=== PATIENT | female | born 1990 | race Caucasian/White ===

== ENCOUNTER 2020-02-27 19:50 | Emergency (ER) | payer OTHER ==
--- NOTE | 2020-02-27 21:07 | ER ---
Nurse's Notes [facility] Name: Kelby Gonzalez Age: 29 yrs Sex: Female : 1990 Arrival Date: 02/27/2020 Time: 19:54 Bed 8 Private MD: Diagnosis: Pain in left leg;Pain in left lower leg Presentation: 02/26 19:59 Chief complaint: Patient states: Bilateral leg pain and numbness since Friday after [address] Coronavirus screen: Proceed with normal triage. Patient denies a cough. Patient denies shortness of breath or difficulty breathing. Patient denies measured and/or subjective temperature greater than 100.4F prior to today's visit. Patient denies travel on a cruise ship or to a country the [facility] currently lists as an affected area. Patient denies contact with known and/or suspected case of COVID-19. Ebola Screen: Patient denies travel to an Ebola-affected area in the 21 days before illness onset. Initial Sepsis Screen: Does the patient meet any 2 criteria? HR > 90 bpm. No. Patient's initial sepsis screen is negative. Does the patient have a suspected source of infection? No. Patient's initial sepsis screen is negative. Risk Assessment: Do you want to hurt yourself or someone else? Patient reports no desire to harm self or others. Onset of symptoms was February 25, 2020. 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 - Social history:: Smoking status: Patient denies any tobacco usage or history of. Patient uses alcohol, only on a social basis. Patient/guardian denies using street drugs, tobacco products. - Family history:: not pertinent. - Hospitalizations: : No recent hospitalization is reported. Screenin:54 Abuse screen: Denies threats or abuse. Nutritional screening: No deficits noted. jd3 Tuberculosis screening: No symptoms or risk factors identified. Fall Risk Ambulatory Aid- None/Bed Rest/Nurse Assist (0 pts). Gait- Normal/Bed Rest/Wheelchair (0 pts) Mental Status- Oriented to own ability (0 pts). Total Brown Fall Scale indicates No Risk (0-24 pts). Assessment: 20:51 General: Appears in no apparent distress. uncomfortable, Behavior is calm, cooperative, jd3 appropriate for age. Pain: Complains of pain in right leg Quality of pain is described as crampy, pressure. Neuro: Level of Consciousness is awake, alert, obeys commands, Oriented to person, place, time, situation. Cardiovascular: Denies chest pain, Capillary refill < 3 seconds Patient's skin is warm and dry. Respiratory: Airway is patent Respiratory effort is even, unlabored, Respiratory pattern is regular, symmetrical, Denies cough, shortness of breath. GI: No signs and/or symptoms were reported involving the gastrointestinal system. Patient currently denies diarrhea, nausea, vomiting. : No signs and/or symptoms were reported regarding the genitourinary system. EENT: No signs and/or symptoms were reported regarding the EENT system. Derm: Skin is intact, Skin is dry, Skin is normal, Skin temperature is warm. Musculoskeletal: Circulation, motion, and sensation intact. Range of motion: intact in all extremities. Vital Signs: 19:59 BP 117 / 75; Pulse 101; Resp 18; Pulse Ox 97% ; Weight 97.52 kg; Height 5 ft. 6 in. ll1 (167.64 cm); Pain 7/10; 19:59 Body Mass Index 34.70 (97.52 kg, 167.64 cm) ll1 ED Course: 19:54 Patient arrived in ED. cl3 20:02 Triage completed. ll1 20:03 Arm band placed on. ll1 20:35 Rell Molina, JORGE is Primary Nurse. jd3 20:47 Kranthi Benito DO is Attending Physician. ms3 20:54 Patient has correct armband on for positive identification. Bed in low position. Call jd3 light in reach. Side rails up X 1. Pulse ox on. NIBP on. 21:29 No provider procedures requiring assistance completed. Patient did not have IV access jd3 during this emergency room visit. Administered Medications: No medications were administered Outcome: 21:06 Discharge ordered by . ms3 21:29 Discharged to home via wheelchair, with family. jd3 21:29 Condition: stable 21:29 Discharge instructions given to patient, Instructed on discharge instructions, follow up and referral plans. Demonstrated understanding of instructions, follow-up care. 21:30 Patient left the ED. jluis Signatures: Rell Molina RN RN Matt Lozano cl3 Flaca Del Real RN RN ll1 Kranthi Benito DO DO ms3
--- NOTE | 2020-02-27 21:30 | EDPHYS ---
Physician Documentation [facility] Name: Kelby Gonzalez Age: 29 yrs Sex: Female : 1990 Arrival Date: 02/27/2020 Time: 19:54 Bed 8 Private MD: ED Physician Kranthi Benito HPI: 02/26 21:09 This 29 yrs old Female presents to ER via Ambulatory with complaints of ms3 Numbness In Legs. 21:15 The patient presents with pain, that is acute. The complaints affect the lateral aspect ms3 of left calf, left lateral ankle, lateral aspect of left foot, left calf, left Achilles, left heel, medial aspect of left calf, left medial ankle, medial aspect of left foot, left sosa, anterior aspect of left ankle and dorsum of left foot, lateral aspect of right calf, right ankle, lateral aspect of right foot, right calf, right Achilles, right heel, medial aspect of right calf, medial aspect of right foot, right sosa, anterior aspect of right ankle and dorsum of right foot. Context: The problem was sustained Rest, resulted from the patient can fully bear weight, the patient is able to ambulate, Problem is a result from a previous injury: No. Onset: The symptoms/episode began/occurred 3 day(s) ago. Modifying factors: The symptoms are alleviated by nothing. the symptoms are aggravated by Sitting or laying down. Associated signs and symptoms: Pertinent positives: Bilateral leg pain. Treatment prior to arrival includes: no previous treatment. Severity of symptoms: in the emergency department the symptoms have improved. 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 - Social history:: Smoking status: Patient denies any tobacco usage or history of. Patient uses alcohol, only on a social basis. Patient/guardian denies using street drugs, tobacco products. - Family history:: not pertinent. - Hospitalizations: : No recent hospitalization is reported. ROS: 21:15 Constitutional: Negative for fever, and chills. Eyes: Negative for injury, pain, ms3 redness, and discharge, ENT: Negative for injury, pain, and discharge, Neck: Negative for injury, pain, and swelling, Cardiovascular: Negative for chest pain, and palpitations. Respiratory: Negative for shortness of breath, cough, wheezing, and pleuritic chest pain, Abdomen/GI: Negative for abdominal pain, nausea, vomiting, diarrhea, and constipation, Back: Negative for injury and pain, : Negative for injury, bleeding, discharge, and swelling, Skin: Negative for injury, rash, and discoloration, Neuro: Negative for headache, weakness, numbness, tingling. Psych: Negative for depression, anxiety, suicide ideation, homicidal ideation, and hallucinations. 21:15 MS/extremity: Positive for pain. Exam: 21:15 Constitutional: This is a well developed, well nourished patient who is awake, alert, ms3 and in no acute distress. Head/Face: Normocephalic, atraumatic. Eyes: Pupils equal round and reactive to light, extra-ocular motions intact. Lids and lashes normal. Conjunctiva and sclera are non-icteric and not injected. Cornea within normal limits. Periorbital areas with no swelling, redness, or edema. Neck: Trachea midline, no cervical lymphadenopathy. Supple, full range of motion without nuchal rigidity, or vertebral point tenderness. No Meningismus. Chest/axilla: Normal chest wall appearance and motion. Nontender with no deformity. Cardiovascular: Regular rate and rhythm with a normal S1 and S2. No gallops, murmurs, or rubs. Normal PMI, no JVD. No pulse deficits. Respiratory: Lungs have equal breath sounds bilaterally, clear to auscultation and percussion. No rales, rhonchi or wheezes noted. No increased work of breathing, no retractions or nasal flaring. Abdomen/GI: Soft, non-tender, with normal bowel sounds. No distension or tympany. No guarding or rebound. No evidence of tenderness throughout. Back: No spinal tenderness. No costovertebral tenderness. Full range of motion. Skin: Warm, dry with normal turgor. Normal color with no rashes, no lesions, and no evidence of cellulitis. 21:15 Musculoskeletal/extremity: Extremities: all appear grossly normal, with no appreciated pain with palpation, ROM: no acute changes, intact in all extremities, full active range of motion, Circulation is intact in all extremities. Pulses: noted to be 2+ in the right posterior tibial artery, right dorsalis pedis artery, left posterior tibial artery and left dorsalis pedis artery, Edema, is not appreciated, Sensation intact. Compartment Syndrome exam of affected extremity: is normal. Joints: Weight bearing: able to fully bear weight. Vital Signs: 19:59 BP 117 / 75; Pulse 101; Resp 18; Pulse Ox 97% ; Weight 97.52 kg; Height 5 ft. 6 in. ll1 (167.64 cm); Pain 7/10; 19:59 Body Mass Index 34.70 (97.52 kg, 167.64 cm) ll1 MDM: 21:04 Patient medically screened. ms3 21:15 Data reviewed: vital signs, nurses notes. Counseling: I had a detailed discussion with ms3 the patient and/or guardian regarding: the historical points, exam findings, and any diagnostic results supporting the discharge/admit diagnosis, to return to the emergency department if symptoms worsen or persist or if there are any questions or concerns that arise at home. ED course: Discussed PE with pt. Pt to follow up with her PMD in 2 days. All questions answered. Return precautions discussed including weakness, numbness, fevers, bowel or bladder incontinence. Pt understands/ agrees with plan. All questions answered. Pt a/o x4, nad, non-toxic, ambulatory in ED.. Administered Medications: No medications were administered Disposition: 21:20 Co-signature as Attending Physician, Kranthi Benito DO. ms3 Disposition: 02/27/20 21:06 Discharged to Home. Impression: Pain in left leg, Pain in left lower leg. - Condition is Stable. - Discharge Instructions: Musculoskeletal Pain. - Medication Reconciliation Form, Thank You Letter, Antibiotic Education, Prescription Opioid Use form. - Follow up: Private Physician; When: 1 - 2 days; Reason: Re-evaluation by your physician. Signatures: Rell Molina RN RN jFlaca Finley RN RN ll1 Kranthi Benito DO DO ms3 Corrections: (The following items were deleted from the chart) 21:30 21:06 02/27/2020 21:06 Discharged to Home. Impression: Pain in left leg; Pain in left jd3 lower leg. Condition is Stable. Forms are Medication Reconciliation Form, Thank You Letter, Antibiotic Education, Prescription Opioid Use. Follow up: Private Physician; When: 1 - 2 days; Reason: Re-evaluation by your physician. ms3
[2020-02-27 21:50] VITALS: BP 117/75; O2SAT 97
== END 2020-02-27 21:30 | disposition home or self-care (01) ==
LOC: ER 19:50
DX: M79.662 Pain in left lower leg (principal); Z88.1 Allergy status to other antibiotic agents
CPT/HCPCS: 99282